=== PATIENT | female | born 1975 | race Caucasian/White ===

== ENCOUNTER 2020-10-31 18:33 | Emergency (ER) | payer OTHER, SELFPAY ==
[2020-10-31 18:44] VITALS: BP 140/79; PULSE 74; RESP 14; TEMP 36.9; O2SAT 100
--- NOTE | 2020-10-31 19:07 | ED.FEMALEGU ---
HPI - Female Genitourinary General Chief complaint: Urogenital-Female Stated complaint: Possible UTI or possible Kind[place] infection Time Seen by Provider: 10/31/20 19:07 Source: patient and RN notes reviewed Mode of arrival: ambulatory Limitations: no limitations History of Present Illness HPI Narrative: 44 year old female who presents to [facility] care with complaints of bilateral lower back burning, suprapubic pressure and legs feeling heavy since this morning. Patient states history of frequent UTI, kidney stone in past and also pyelonephritis in past. Patient reports that at times she will have sharp fleeting pain to her left side. Patient denies any burning with en she urinates no frequency or urgency, denies any known fevers, chills or sweats. Patient denies any vaginal discharge or any concern for STD exposure. Patient states that she took Tylenol and Diurex OTC medications for her symptoms MD elicited complaint: back pain and other (suprapubic pressure) Pertinent past history: recurrent UTIs, pyelonephritis and other (kidney stone) Onset (ago): day(s) (1 since this morning) Location of symptoms: suprapubic and low back Related Data Home Medications Medication Instructions Recorded Confirmed fluoxetine [Prozac] 40 mg PO DAILY 10/31/20 10/31/20 trazodone 50 mg PO HS 10/31/20 10/31/20 Allergies Allergy/AdvReac Type Severity Reaction Status Date / Time No Known Allergies Allergy Verified 10/31/20 18:52 Review of Systems Review of Systems: CONSTITUTIONAL: Denies fever, chills, or sweats. EYES: Denies visual changes, redness, or discharge. ENT: Denies rhinorrhea, congestion, sore throat, or otalgia. CARDIOVASCULAR: Denies chest pain, palpitations, or edema. RESPIRATORY: Denies cough or dyspnea. GASTROINTESTINAL: Positive for suprapubic abdominal pain, no nausea, vomiting, or diarrhea. GENITOURINARY: Denies dysuria or hematuria.Positive for suprapubic pressure and low back burning with intermittent sharp pain to left side SKIN: Denies rash or itching. MUSCULOSKELETAL:Positive lower back pain, joint pain, or myalgia. NEUROLOGIC: Denies headache, numbness, or weakness. PSYCHIATRIC: Positive history of anxiety or depression. [facility] Past Medical History Medical History (Updated 11/04/20 @ 12:20 by Alexus Ghotra NP) Anxiety and depression Hypertension Kidney stone Pyelonephritis Sleep apnea Ureteral reflux surgery to repair UTI (urinary tract infection) Surgical History Surgical History (Updated 11/04/20 @ 12:11 by Alexus Ghotra NP) History of bilateral carpal tunnel release History of cystoscopy removal of kidney stone History of weight loss surgery gastric sleeve Previous section Family History Family History (Updated 11/04/20 @ 12:06 by Alexus Ghotra NP) Other No significant family history Social History Social History (Updated 11/04/20 @ 12:06 by Alexus Ghotra NP) Smoking status: Never smoker Alcohol intake: current Alcohol use details: Rare social Substance use: never Living arrangements: with family Gender identity (if verbalized by the patient): Female Comments At time of signature, agree with nursing past medical, surgical, social and family history. There is no relevant family history pertinent to the presenting complaint Exam Narrative: GENERAL: Well-appearing, well-nourished, and in no acute distress. HEAD: Normocephalic, atraumatic. EYES: PERRLA and EOMI. ENT: Nares clear, no rhinorrhea or epistaxis. Mucous membranes moist.TM's normal with good light reflex, throat pink with no lesions or exudates, no tonsil swelling. NECK: Supple.no lymphadenopathy CHEST: Clear to auscultation. No respiratory distress. HEART: Regular rate and rhythm. No murmur heard. Normal peripheral pulses. ABDOMEN: Soft,tender over suprapubic area nondistended, normal active bowel sounds.Negative McBurney point tenderness, no reproduction of left side pain on palpation EXT
== END 2020-10-31 19:23 | disposition home or self-care (01) ==
PROVIDERS: Emergency Provider Registered Nurse
DX: N39.0 Urinary tract infection, site not specified (principal); I10 Essential (primary) hypertension; G47.30 Sleep apnea, unspecified; F41.9 Anxiety disorder, unspecified; F32.9 Major depressive disorder, single episode, unspecified
CPT/HCPCS: 81003; 87086; 99213; G0463

== ENCOUNTER 2021-11-05 12:48 | Outpatient (CLI) | payer OTHER, SELFPAY | END 2021-11-05 12:49 | disposition home or self-care (01) | LOC: ANHSURGERY 12:54 | PROVIDERS: Visit Provider Obstetrics & Gynecology | DX: R10.2 Pelvic and perineal pain (principal) | CPT/HCPCS: 36415; 86850; 86900; 86901 ==

== ENCOUNTER 2021-11-06 00:12 | Day surgery (SDC) | payer OTHER, SELFPAY ==
[2021-10-30 15:00] VITALS: BMI 31.6
--- NOTE | 2021-10-30 15:09 | PC.NURSE ---
Addendum entered by Nadia Clinton RN 10/31/21 14:55: TEGRETOL ENTERED IN ERROR. ACTUAL MEDICATION IS OXCARBAZEPINE (TRILEPTAL). PLEASE TAKE THAT THE MORNING OF SURGERY ALONG WITH A XANAX (IF NEEDED) Original Note: Report to the Outpatient Waiting Room, entrance under the green pavilion located off [facility], at time 6:00 on date 11/06/21. OR Time: 7:30. - You and your visitor will be asked a series of questions to screen for COVID 19 for your protection. - Only one visitor is allowed at this time. - The patient visitor is requested to leave or wait in car when not with patient. - A mask is required within the hospital. Patients may have clear liquids (water, carbonated beverages, clear teas, apple juice) until 3 hours prior to surgery (4:30) with a maximum of 20 ounces. - No food from midnight until time of surgery Take the following medications with a SIP of water the morning of surgery: TEGRETOL, XANAX (IF NEEDED) Medications to discontinue per physician: N/A Date to take last dose: N/A Please no make-up, nail welsh, hairspray, perfume, deodorant, or body powder the day of surgery. No jewelry (including any body piercings) or valuables the day of surgery, leave them at home. Please take a shower or bath the night before, or the morning of, surgery with an antibacterial soap. Wear comfortable, loose fitting clothing. - Jewelry must be removed prior to entering the operating room. Rings and piercings that are not removed may be cut off. - The hospital will not accept responsibility for valuables. - Please leave all valuables, including medications, at home the day of surgery. If you are going home after surgery, a licensed [employer] driver must drive you home. - NO public transportation without another adult. - We recommend that an adult stay with you for 24 hours following discharge. - We also recommend that you do not drive, make important decision, drink alcoholic beverages, or take any drugs that were not prescribed by your health care provider for at least 24 hours after your discharge time. Follow any additional instructions given to you from your surgeon. If you or anyone in your household have experienced Covid symptoms in the past week, please notify your surgeon or the nurse liaison at the phone number below for possible testing. Telephone instructions given to JULIA LANG and asked if any additional questions and then verbalized understanding. Patient advised to call surgeon office or pre surgery nurse liaison [phone] if any additional questions.
[2021-11-06] VITALS (12 sets, daily range): BP systolic 93–124; BP diastolic 53–74; PULSE 46–72; RESP 12–18; TEMP 35.8–37.2; O2SAT 95–100
--- NOTE | 2021-11-06 06:54 | P.PNAN_ITS ---
Anes - Initial Pre Proc Eval Procedure: Operation Date: 11/06/21 07:30 Proposed Procedures p Total Laparoscopic Hysterectomy with Bilateral Laparoscopic Salpingectomy - Linh Beatty MD Date/Time: 11/06/21 06:54 Surgeon: Linh Beatty MD Pre Op Diagnosis: pelvic pain Patient Data Age: 45 Gender: F Height: 1.52 m Weight: 73.48 kg Allergies Allergy/AdvReac Type Severity Reaction Status Date / Time No Known Allergies Allergy Verified 10/30/21 14:58 Home Medications Medication Instructions Recorded Confirmed Type alprazolam 0.25 mg tablet 0.25 mg PO DAILY PRN Anxiety 10/30/21 10/30/21 History oxcarbazepine 150 mg tablet 150 mg PO BID 10/30/21 10/30/21 History zolpidem 10 mg tablet (Ambien) 10 mg PO HS PRN Insomnia 10/30/21 10/30/21 History Patient hx anesthesia problems: none Family hx anesthesia problems: none Results Review: All pre-operative results and documents have been reviewed as part of the pre- operative evaluation. [facility] Past Medical History Medical History Anxiety and depression Surgical History Surgical History History of bilateral carpal tunnel release History of cystoscopy removal of kidney stone History of weight loss surgery gastric sleeve Previous section Family History Family History Other No significant family history Social History Social History Smoking status: Never smoker Alcohol intake: current Drinks per week: 2 Alcohol use details: Rare social Substance use: never Substance use type: does not use Living arrangements: with family Gender identity (if verbalized by the patient): Female Spiritual care concerns: No Anes - Eval Final PreProcedure Day of Procedure 11/06/21 06:54 Patient weight: overweight Heart: regular rate and rhythm Lungs: clear to auscultation Airway: Mallampati scale class II Neurological: alert and oriented Last oral intake: >/= 8 hours ASA classification: II Emergent: no Anesthetic plan: proceed Anesthesia type and monitoring: general ETT and standard monitoring Results Review: All pre-operative results and documents have been reviewed as part of the pre- operative evaluation. Informed Consent: The patient's anesthetic plan and its attendant risks and benefits were discussed with the patient/family/POA. Questions were solicited and answers provided to the satisfaction of the patient/family/POA.
--- NOTE | 2021-11-06 07:12 | WPDHPUPDATE1 ---
History and Physical Update Update Date/Time: 11/06/21 07:12 History and Physical has been reviewed, including an updated exam of the patient. There are NO changes in the patient's condition. Risks, benefits, and alternatives have been discussed and questions answered. Patient agrees to proceed with procedure.
[2021-11-06] MEDS: ACETAMINOPHEN 500 MG TABLET 1000 MG PO (07:15)
[2021-11-06] MEDS: KETOROLAC 15 MG/ML VIAL (*BKC) IV PUSH (07:15)
[2021-11-06] MEDS: LACTATED RINGERS 1,000 ML 30 ML IV CONT ×2 (07:15→09:35)
--- NOTE | 2021-11-06 07:17 | PM.IMHP ---
H&P: HPI History of Present Illness Date/Time: 11/06/21 07:17 Chief Complaint: Dyspareunia Narrative: This patient is a 45-year-old female with severe dyspareunia and pelvic pain. We have agreed to perform total laparoscopic hysterectomy bilateral salpingectomy. She understands that injuries may occur during the surgery that result in hospitalization, more surgery, severe illness. She understands there is risk of hemorrhage and infection. She denies any chest pain or shortness of breath. She denies any nausea, vomiting, fever, chills. Review of Systems Review of Systems: All systems reviewed & are unremarkable except as noted in HPI and below Constitutional: Constitutional: Denies chills, Denies fatigue, Denies fever(s) and Denies weakness Eyes: Eyes: Denies blurry vision, Denies change in vision, Denies loss of peripheral vision, Denies loss of vision, Denies other visual disturbances and Denies eye pain ENT: Denies vertigo, Denies dizziness, Denies hearing loss, Denies mouth pain, Denies nasal obstruction, Denies neck mass and Denies neck pain Cardiovascular: Cardiovascular: Denies chest pain, Denies diaphoresis, Denies syncope, Denies leg edema and Denies dyspnea Respiratory: Respiratory: Denies chest congestion, Denies cough, Denies hemoptysis, Denies dyspnea and Denies wheezing Gastrointestinal: Gastrointestinal: Denies abdominal pain, Denies constipation, Denies diarrhea, Denies nausea and Denies vomiting Genitourinary: Genitourinary: Denies hematuria, Denies change in libido, Denies nocturia, Denies genital lesions, Denies flank pain and Denies urinary urgency Musculoskeletal: Musculoskeletal: Denies abnormal gait, Denies back pain, Denies myalgias, Denies arthralgias, Denies joint swelling, Denies muscle weakness and Denies neck pain Integumentary/Breasts: Skin/Breast: Denies swelling, Denies breast pain, Denies breast mass, Denies dry skin, Denies nipple discharge, Denies unusual bruising and Denies jaundice Neurologic: Denies Neuro-related abnormal movements, Denies Abnormal speech present, Denies abnormal gait, Denies behavioral changes, Denies confusion, Denies vertigo, Denies dizziness, Denies syncope, Denies loss of vision, Denies memory loss, Denies convulsions and Denies weakness Psychiatric: Psychiatric: Denies abnormal sleep pattern, Denies behavioral changes, Denies change in libido, Denies confusion, Denies depression, Denies anhedonia and Denies memory loss Endocrine: Endocrine: Reports no additional endocrine complaints, Denies change in libido and Denies fatigue Hematologic/Lymphatic: Hematologic/Lymphatic: Reports no additional hematologic/lymphatic complaints Allergic/Immunologic: Allergic/Immunologic: Reports no additional allergic/immunologic complaints and Denies wheezing PMFSH Past Medical History Medical History Anxiety and depression Surgical History Surgical History History of bilateral carpal tunnel release History of cystoscopy removal of kidney stone History of weight loss surgery gastric sleeve Previous section Family History Family History Other No significant family history Social History Social History Smoking status: Never smoker Alcohol intake: current Drinks per week: 2 Alcohol use details: Rare social Substance use: never Substance use type: does not use Living arrangements: with family Gender identity (if verbalized by the patient): Female Spiritual care concerns: No Meds Home Medications and Allergies Home Medications Medication Instructions Recorded Confirmed Type alprazolam 0.25 mg tablet 0.25 mg PO DAILY PRN Anxiety 10/30/21 10/30/21 History oxcarbazepine 150 mg tablet 150 mg PO BID 10/30/21 10/30/21
[2021-11-06] MEDS: ceFAZolin 2 GM/D5W 50 ML 2 GM/50 ML BAG IVPB (07:27)
[2021-11-06] MEDS: ceFAZolin SODIUM 1 GM VIAL (08:35)
--- NOTE | 2021-11-06 09:33 | W.PM.PROC2 ---
Procedure Note - Detailed Date of Procedure 11/06/21 Pre-op Diagnosis pelvic pain Post-op Diagnosis Same Procedure Performed Total laparoscopic hysterectomy.Bilateral salpingectomy Surgeon Linh Beatty MD Anesthesia General Indications Dyspareunia, pelvic pain Findings Thickened adnexal tissue, thickened vagina, normal appearing ovaries, fibroid uterus, enlarged Description of Procedure This patient was taken to the operating room. She was prepped and draped in the dorsal lithotomy position after induction of general anesthesia. The uterine manipulator and Janiya cup were placed. This was done with a speculum and tenaculum. The speculum was placed. The cervix was grasped with a tenaculum. The stay sutures were placed at 3 and 9:00 a.m.. The stay sutures of 0 Vicryl were brought through the appropriately sized Janiya cup. The tip of the INDERJIT manipulator was placed in the intrauterine cavity. The cup was slid into place around the cervix and into the fornices. It was locked into place. The sutures were then wrapped around the handle and tied under tension. A 5 mm skin incision was made in the left upper quadrant the abdomen. A 5 mm trocar was inserted into the intrauterine cavity under direct visualization of the scope. Pneumoperitoneum was achieved. A left lower quadrant 11 mm incision was made with scalpel. An 11 mm trocar was inserted into the anterior abdominal cavity under direct visualization the scope. A 5 mm infraumbilical incision was made with a scalpel and a 5 mm trocar was inserted the intra-abdominal cavity under direct visualization of the scope. Bilateral ureteral lysis was performed. This was done from the pelvic brim down to the uterine artery. This was done with careful dissection using sharp and blunt dissection. The fallopian tubes were removed bilaterally. The mesosalpinx around the fallopian tubes were cauterized transected with LigaSure cautery. This was done in a bilateral fashion from the ovary to the uterine cornua. The fallopian tube was transected at the uterine cornu and amputated. The tube was taken out the left lower quadrant trocar site. In a stepwise fashion along the lateral aspects of the uterus the round ligament and broad ligaments were cauterized transected down to the level of the uterine arteries. A bladder flap was created in the bladder was moved distally to the end of the cervix and over the Janiya cup. The bilateral uterine arteries were cauterized and transected. Colpotomy was then performed. In a circumferential fashion the vagina was transected using unipolar cautery. The incision was made down on the Janiya cup. The uterus and cervix were taken out through the vagina. A pneumo occluder was placed in the vagina. The vaginal cuff was closed with a 0 V lock suture in a running fashion. The pelvis was irrigated with copious amounts antibiotic irrigation. The ureters were again examined and found to be intact and flowing freely under the uterine arteries into the bladder. The bladder was intact. It was examined directly. The vagina was irrigated with Betadine solution after removal of the Pneumo occluder. The patient was taken to recovery room. She was stable condition. Sponge lap and needle counts were correct x2. Estimated Blood Loss 75 Drains Yes Packing No Pathology Yes Complications No immediate complications Condition Stable Disposition Floor
[2021-11-06] MEDS: fentaNYL CITRATE INJ (*CRX) 100 MCG/2 ML VIAL 25 MCG IV PUSH ×4 (10:01→10:25)
[2021-11-06] MEDS: LACTATED RINGERS 1,000 ML 125 ML IV CONT (12:00)
--- NOTE | 2021-11-06 12:05 | PC.NURSE ---
1210 Patient's IV in her left forearm is a 22 gauge butterfly, IV fluids were ordered at 125mls/hr, RN turned down to 100mls/hr due to IV size.
[2021-11-06] MEDS: HYDROcodone/acetaminophen (*CRX) 5-325 MG TABLET 1 TAB PO ×3 (13:37→23:52)
[2021-11-06] MEDS: SIMETHICONE 80 MG TAB.CHEW (13:38)
[2021-11-06] MEDS: KETOROLAC 30 MG/ML VIAL (*BKC) IV PUSH (14:34)
[2021-11-06] MEDS: OXcarbazepine 150 MG TABLET PO (20:49)
[2021-11-06] MEDS: IBUPROFEN 600 MG TABLET PO (23:51)
[2021-11-07 00:11] VITALS: BP 118/71; PULSE 60; RESP 18; TEMP 36.4; O2SAT 97
[2021-11-07 04:50] VITALS: BP 119/65; PULSE 54; RESP 18; TEMP 36.8; O2SAT 98
[2021-11-07 07:40] VITALS: BP 105/53; PULSE 60; RESP 18; TEMP 36.6; O2SAT 97
--- NOTE | 2021-11-07 07:46 | WPDANESPN ---
Anes - Prog Note Post-Op Date/Time: 11/07/21 07:46 Cardiovascular status: normal Respiratory status: normal Airway patency: baseline Mental status: baseline Post-Op hydration status: normal Vital Signs: Last Vital Signs Temp 98.3 F 11/07/21 04:50 Pulse 54 L 11/07/21 04:50 Resp 18 11/07/21 04:50 BP 119/65 11/07/21 04:50 Pulse Ox 98 11/07/21 04:50 O2 Del Method Room Air 11/07/21 04:50 O2 Flow Rate 2 11/06/21 11:00 Pain Score (VAS): 03/31 I/O: Intake & Output 11/06/21 11/06/21 11/07/21 15:59 23:59 07:59 Intake Total 640 700 Output Total 80 700 Balance 560 0 Post-procedural complaints: none Patient Feedback: Patient satisfied with anesthetic care.
--- NOTE | 2021-11-07 08:00 | PC.NURSE ---
PT introductions made and plan of care discussed per post op exhibition designer surgery, pain management, daily care activities and pending discharge to home. PT sole recipient of such instructions and no barriers to learning identified at this time. PT received such instructions per one to one discussion and demonstrations this shift. PT verbalized understanding of such care.
--- NOTE | 2021-11-07 09:00 | PM.GYNPNOP ---
WAREHOUSE RECEIVING SUPERVISOR - A/P Postoperative Procedures: Procedures Operation Date: 11/06/21 07:30 Actual Procedure Side Surgeon p Total Laparoscopic Hysterectomy with Bilateral Salpingectomy Bilateral Linh Beatty MD Postoperative day: 1 Postoperative status: doing well Postoperative plan: see orders Time Spent With Patient Time: Total time spent is greater than 50% in coordination of care (as documented) at patient's floor/unit and/or counseling patient: Time with patient: less than 15 minutes WAREHOUSE RECEIVING SUPERVISOR- PN:Subj Post-Op Subjective Date/time seen: 11/07/21 09:00 Subjective: patient reports feeling better, patient has no complaints and pain is well controlled Exam Const: General: healthy appearing, comfortable and no acute distress Resp: Auscultation: clear to auscultation bilaterally, no rales, no rhonchi and no wheezes Cardio: Rate: regular rate Heart sounds: no click, no murmurs and no rubs GI: Inspection: non-distended Auscultation: normal bowel sounds Extrem: General: normal to inspection, no pedal edema and no calf tenderness WAREHOUSE RECEIVING SUPERVISOR - PN: Obj Data Vital Signs Vital Signs: Vital Signs - 24 hr 11/06/21 09:35 11/06/21 09:50 11/06/21 10:05 Temperature 97.7 F Pulse Rate 53 L 46 L 46 L Respiratory Rate 16 16 12 Blood Pressure 93/53 L 106/64 97/66 L Pulse Oximetry 95 100 99 Oxygen Delivery Simple Face Mask Simple Face Mask Simple Face Mask Oxygen Flow Rate 6 6 6 11/06/21 10:20 11/06/21 10:35 11/06/21 11:00 Temperature 96.4 F L Pulse Rate 49 L 46 L 57 L Respiratory Rate 12 12 16 Blood Pressure 96/55 L 111/71 99/57 L Pulse Oximetry 95 100 100 Oxygen Delivery Nasal Cannula Nasal Cannula Oxygen Flow Rate 2 2 11/06/21 11:00 11/06/21 11:30 11/06/21 12:05 Temperature 97.2 F L Pulse Rate Respiratory Rate Blood Pressure Pulse Oximetry 100 96 Oxygen Delivery Nasal Cannula Room Air Oxygen Flow Rate 2 11/06/21 13:22 11/06/21 17:00 11/06/21 17:00 Temperature 98.0 F 99.0 F Pulse Rate 55 L Respiratory Rate 16 Blood Pressure 100/57 L Pulse Oximetry 98 96 Oxygen Delivery Room Air Oxygen Flow Rate 11/06/21 20:00 11/06/21 20:00 11/07/21 00:11 Temperature 98.2 F 97.6 F Pulse Rate 72 72 60 Respiratory Rate 18 18 18 Blood Pressure 124/74 118/71 Pulse Oximetry 98 98 97 Oxygen Delivery Room Air Oxygen Flow Rate 11/07/21 00:11 11/07/21 04:50 11/07/21 04:50 Temperature 98.3 F Pulse Rate 60 54 L 54 L Respiratory Rate 18 18 18 Blood Pressure 119/65 Pulse Oximetry 97 98 98 Oxygen Delivery Room Air Room Air Oxygen Flow Rate Intake/Output Intake/Output: Intake & Output 11/04/21 11/05/21 11/06/21 11/07/21 23:59 23:59 23:59 23:59 Intake Total 1390 Output Total 780 Balance 610 Meds/Results Medications: Active Medications Generic Name Dose Route Start Last Admin Trade Name Freq PRN Reason Stop Dose Admin Hydrocodone Bitart/Acetaminophen 1 tab 11/06/21 10:45 11/06/21 23:52 Hydrocodone/Acetaminophen (*Crx) 5-325 Mg Tablet PO 1 tab Q3H PRN Administration Pain Rated 5 or Less Hydrocodone Bitart/Acetaminophen 1 tab 11/06/21 10:45 Hydrocodone/Acetaminophen (*Crx) 10-325 Mg Tablet PO Q3H PRN Pain Rated 6 or Greater Alprazolam 0.25 mg 11/06/21 10:45 Alprazolam (*Crx) 0.25 Mg Tablet PO DAILY PRN Anxiety Ibuprofen 600 mg 11/06/21 10:45 11/06/21 23:51 Ibuprofen 600 Mg Tablet PO 600 mg Q6H PRN Administration Cramping Ketorolac Tromethamine 30 mg 11/06/21 10:45 11/06/21 14:34 Ketorolac 30 Mg/Ml Vial (*Bkc) IV PUSH 11/11/21 10:44 30 mg Q6H PRN Administration Pain Rated 4-6 Naloxone HCl 0.1 mg 11/06/21 10:45 Naloxone Hcl 0.4 Mg/Ml Vial IV PUSH Q2M PRN Respiratory rate less than 10 Ondansetron HCl 4 mg 11/06/21 10:45 Ondansetron Inj 4 Mg/2 Ml Vial IV PUSH Q6H PRN Nausea And Vomiting Oxcarbazepine 150 mg 11/06/21 21:00 11/06/21 20
[2021-11-07] MEDS: HYDROcodone/acetaminophen (*CRX) 5-325 MG TABLET 1 TAB PO (09:39)
[2021-11-07 09:40] VITALS: PULSE 60; RESP 18; O2SAT 97
[2021-11-07] MEDS: IBUPROFEN 600 MG TABLET PO (09:40)
[2021-11-07] MEDS: OXcarbazepine 150 MG TABLET PO (09:41)
--- NOTE | 2021-11-07 10:30 | PC.NURSE ---
PT received discharge instructions per protocol and verbalized understanding of such care
--- NOTE | 2021-11-07 10:54 | PC.NURSE ---
PT discharged to home ambulatory accompanied by spouse and taken to waiting car. follow up appts confirmed
== END 2021-11-07 10:54 | disposition home or self-care (01) ==
LOC: ANHSURGERY 06:06 → ANHOB2 10:52
PROVIDERS: Visit Provider Obstetrics & Gynecology
PROC: 0UT9FZZ Resection of Uterus, Via Natural or Artificial Opening With Percutaneous Endoscopic Assistance (ICD-10-PCS; CPT 58571; principal; 2021-11-06 07:30)
DX: R10.2 Pelvic and perineal pain (principal); D25.2 Subserosal leiomyoma of uterus; N83.8 Other noninflammatory disorders of ovary, fallopian tube and broad ligament; N94.10 Unspecified dyspareunia; F41.8 Other specified anxiety disorders; Z98.84 Bariatric surgery status
CPT/HCPCS: 58571; 88307; 99199; A9270; J0690; J1100; J1885; J2250; J2405; J2704; J2710; J3010; J7030; J7120